=== PATIENT | female | born 1930 | race Two or more races ===

== ENCOUNTER 2017-08-01 01:32 | Inpatient (IN) | payer MEDICARE, OTHER ==
[2017-08-01] VITALS (49 sets, daily range): BP systolic 62–178; BP diastolic 25–132
[~2017-08-01] VITALS: Ht 157.5 cm; Wt 78.5 kg
[2017-08-01] MEDS ORDERED: ONDANSETRON HCL/PF 4 MG/2 ML VIAL ONE (01:46)
[2017-08-01 01:56] LABS: BASOPHILS # (AUTO) 0.3 /CMM (0.0-0.2); HEMATOCRIT 32 % (33-45); HEMOGLOBIN 10.9 g/dL (11.5-14.8); LYMPHOCYTES # (AUTO) 2.7 /CMM (0.8-4.8); LYMPHOCYTES % (AUTO) 9.5 % (20.0-44.0); MEAN CORPUSCULAR HEMOGLOBIN 32 PG (26.0-33.0); MEAN CORPUSCULAR HGB CONC 34 g/dl (31.0-36.0); MEAN CORPUSCULAR VOLUME 92 fL (82-100); MONOCYTES # (AUTO) 0.4 /CMM (0.1-1.30); MONOCYTES % (AUTO) 1.4 % (2.0-12.0); NEUTROPHILS # (AUTO) 25.3 /CMM (1.8-8.9); NEUTROPHILS % (AUTO) 88.1 % (43.0-81.0); PLATELET COUNT (AUTO) 289 /CMM (150-450); RDW COEFFICIENT OF VARIATION 13.2 (11.5-15.0); RED BLOOD CELL COUNT(AUTO) 3.44 MIL/uL (4.0-5.2); WHITE BLOOD COUNT (AUTO) 28.7 K/uL (4.3-11.0)
[2017-08-01] MEDS ORDERED: IV NS 0.9% 1,000 ML BAG IV ONE ×3 (02:00→05:30)
[2017-08-01] MEDS ORDERED: ONDANSETRON HCL/PF 4 MG/2 ML VIAL IVP ONE (02:00)
[2017-08-01 02:22] LABS: CARBON DIOXIDE 22 mmol/L (21-32); CHLORIDE 104 mmol/L (98-107); CREATININE 3.6 mg/dL (0.6-1.3); GLUCOSE 216 mg/dL (74-106); POTASSIUM 4.8 mmol/L (3.5-5.1); SODIUM SERUM 140 mmol/L (136-145); UREA NITROGEN, BLOOD 49 mg/dL (7-18)
[2017-08-01 02:26] LABS: INR 1.1 (0.87-1.13); PROTHROMBIN TIME 11.4 SECS (9.5-12.7)
[2017-08-01 02:28] LABS: ALANINE AMINOTRANSFERASE 11 U/L (12-78); ALBUMIN 2.7 g/dL (3.4-5.0); ALKALINE PHOSPHATASE 57 U/L (46-116); ASPARTATE AMINOTRANSFERASE 13 U/L (15-37); BILIRUBIN,DIRECT 0.2 mg/dL (0.0-0.2); BILIRUBIN,TOTAL 0.7 mg/dL (0.2-1.0); LIPASE 77 U/L (73-393); TOTAL PROTEIN, SERUM 6.8 g/dL (6.4-8.2)
[2017-08-01 02:30] LABS: TROPONIN I 0.218 ng/mL (0.00-0.056)
[2017-08-01 02:32] LABS: APPEARANCE,URINE SL CLOUDY (CLEAR); BILIRUBIN,URINE NEGATIVE (NEGATIVE); BLOOD, URINE NEGATIVE Ery/uL (NEGATIVE); KETONES,URINE NEGATIVE (NEGATIVE); LEUKOCYTE ESTERASE ,URINE NEGATIVE (NEGATIVE); NITRITE, URINE POSITIVE (NEGATIVE); PROTEIN,URINE TRACE mg/dl (NEGATIVE); UGLUCOSE NEGATIVE (NEGATIVE); UROBILINOGEN,URINE 0.2 EU/dL (0.2)
[2017-08-01 02:33] LABS: COLOR,URINE DARK YELLOW (YELLOW)
[2017-08-01 02:37] LABS: BACTERIA,URINE Many /HPF (None Seen); RBC,URINE 0-2 /HPF (0-2); SQUAMOUS EPITHELIAL CELL,UR Rare /HPF (None Seen)
[2017-08-01 02:40] LABS: LYMPHOCYTES % (MANUAL) 13 % (16-48); MONOCYTES % (MANUAL) 2 % (0-11.0); NEUTROPHILS % (MANUAL) 85 (42-76)
[2017-08-01] MEDS ORDERED: IV NS 0.9% 500 ML BAG IV ONE (03:30)
[2017-08-01] MEDS ORDERED: AZTREONAM 1 G VIAL ONE (03:48)
[2017-08-01] MEDS ORDERED: AZTREONAM 1 G in IV NS 0.9% 100 ML IV ONE (04:00)
[2017-08-01] MEDS ORDERED: LEVOFLOXACIN 750 MG /D5W 150ML PIGGYBACK IV ONE (04:00)
[2017-08-01] MEDS ORDERED: LEVOFLOXACIN 750 MG /D5W 150ML 150 ML IV ONE (04:14)
[2017-08-01] MEDS: IV NS 0.9% 1,000 ML IV ONE ×2 (05:30→08:43)
[2017-08-01] MEDS ORDERED: MORPHINE SULFATE INJ 2 MG/ML DISP.SYRIN IV PRN (06:30)
[2017-08-01] MEDS: IV NS 0.9% 1,000 ML BAG IV ONE ×2 (06:30→09:26)
[2017-08-01] MEDS ORDERED: ONDANSETRON HCL/PF 4 MG/2 ML VIAL IVP PRN (06:30)
[2017-08-01] MEDS ORDERED: ACETAMINOPHEN 650 MG/SUPP.RECT RC PRN (06:30)
[2017-08-01] MEDS ORDERED: LORAZEPAM INJ 2 MG/ML VIAL IVP PRN (06:30)
[2017-08-01] MEDS ORDERED: MIRT15TA PO (08:08)
[2017-08-01] MEDS ORDERED: CARB1TAB21 PO (08:08)
[2017-08-01] MEDS ORDERED: MAGN400O6 PO (08:08)
[2017-08-01] MEDS ORDERED: PSYL1PAC8 PO (08:08)
[2017-08-01] MEDS ORDERED: NA P133E RC (08:08)
[2017-08-01] MEDS ORDERED: ACET-868 PO (08:08)
[2017-08-01] MEDS ORDERED: RANO10003 PO (08:08)
[2017-08-01] MEDS ORDERED: LISI2.5T2 PO (08:08)
[2017-08-01] MEDS ORDERED: BISA10SU8 RC (08:08)
[2017-08-01] MEDS ORDERED: INSU100V7 SQ (08:08)
[2017-08-01] MEDS ORDERED: DOCU-141 PO (08:08)
[2017-08-01] MEDS ORDERED: GABA-534 PO (08:08)
[2017-08-01] MEDS ORDERED: METO25TA3 PO (08:08)
[2017-08-01] MEDS ORDERED: OSEL75CA PO (08:08)
[2017-08-01] MEDS ORDERED: METF500T4 PO (08:08)
[2017-08-01] MEDS ORDERED: MEMA5TAB PO (08:08)
[2017-08-01] MEDS ORDERED: SIMV20TA2 PO (08:08)
[2017-08-01] MEDS ORDERED: VANCOMYCIN 1 GM in IV D5W 250 ML IV ONE (09:00)
[2017-08-01] MEDS ORDERED: NOREPINEPHRINE 16 MG in IV D5W 500 ML IV PRN (09:00)
[2017-08-01] MEDS: ASPIRIN 81 MG TAB.CHEW PO SCH (09:33)
[2017-08-01] MEDS: PANTOPRAZOLE 40 MG VIAL IV SCH (09:33)
[2017-08-01] MEDS ORDERED: FEE PK DOSING 1 MIN EA MC ONE (09:42)
[2017-08-01] MEDS: IV NS 0.9% 1,000 ML IV PRN ×2 (10:27→18:59)
[2017-08-01 11:35] LABS: ABG BASE EXCESS -12.7 mmol/L; ABG OXYGEN SATURATION 96.8 % (92.0-98.5); ABG PCO2 37.1 mmHg (35.0-45.0); ABG PH 7.206 (7.350-7.450); ABG PO2 102.5 mmHg (75.0-100.0); AaDO2 53.4 mmHg; COHb 0.6 % (0.5-1.5); MetHb 0.2 % (0.0-1.5); SITE, ABG Right Radial; VENT MODE, BG 2 L NC
[2017-08-01] MEDS: PIPERACILLIN /TAZOBACTAM 2.25 G in IV D5W 50 ML IV SCH ×2 (11:51→21:55)
[2017-08-01] MEDS: HEPARIN SODIUM, PORCINE 5000 UNITS/1 ML VIAL SQ SCH ×2 (11:53→21:57)
[2017-08-01] MEDS ORDERED: SODIUM BICARBONATE SYR 50 MEQ/50 ML DISP.SYRIN IV ONE (12:00)
[2017-08-01] MEDS ORDERED: PIPERACILLIN /TAZOBACTAM 3.375 G in IV D5W 50 ML IV SCH (12:00)
[2017-08-01] MEDS ORDERED: BISACODYL SUPP (10 MG) 10 MG/SUPP.RECT SUPP.RECT RC PRN (12:00)
[2017-08-01 12:06] LABS: TROPONIN I 0.133 ng/mL (0.00-0.056)
[2017-08-01 12:10] LABS: THYROID STIMULATING HORMONE 0.384 uIU/mL (0.358-3.74)
[2017-08-01 12:20] LABS: CARBON DIOXIDE 19 mmol/L (21-32); CHLORIDE 108 mmol/L (98-107); GLUCOSE 223 mg/dL (74-106); POTASSIUM 4.7 mmol/L (3.5-5.1); SODIUM SERUM 139 mmol/L (136-145); UREA NITROGEN, BLOOD 49 mg/dL (7-18)
[2017-08-01 12:27] LABS: BASOPHILS % (AUTO) 0.1 % (0.0-2.0); HEMATOCRIT 34 % (33-45); HEMOGLOBIN 11.4 g/dL (11.5-14.8); LYMPHOCYTES # (AUTO) 1.5 /CMM (0.8-4.8); LYMPHOCYTES % (AUTO) 6.7 % (20.0-44.0); MEAN CORPUSCULAR HEMOGLOBIN 32 PG (26.0-33.0); MEAN CORPUSCULAR HGB CONC 33 g/dl (31.0-36.0); MEAN CORPUSCULAR VOLUME 96 fL (82-100); MONOCYTES # (AUTO) 0.2 /CMM (0.1-1.30); MONOCYTES % (AUTO) 0.9 % (2.0-12.0); NEUTROPHILS # (AUTO) 20.9 /CMM (1.8-8.9); NEUTROPHILS % (AUTO) 92.3 % (43.0-81.0); PLATELET COUNT (AUTO) 280 /CMM (150-450); RDW COEFFICIENT OF VARIATION 14.1 (11.5-15.0); RED BLOOD CELL COUNT(AUTO) 3.59 MIL/uL (4.0-5.2); WHITE BLOOD COUNT (AUTO) 22.6 K/uL (4.3-11.0)
[2017-08-01] MEDS: CARBIDOPA/LEVODOPA 25/100 MG 1 UDTAB PO SCH ×2 (13:09→16:35)
[2017-08-01] MEDS ORDERED: DEXTROSE 50%-WATER 50 ML DISP.SYRIN IV PRN (13:30)
[2017-08-01] MEDS: MEMANTINE HCL 5 MG TABLET PO SCH (16:35)
[2017-08-01] MEDS: GABAPENTIN 300 MG CAPSULE PO SCH (16:35)
[2017-08-01] MEDS: DOCUSATE SODIUM 100 MG CAPSULE PO SCH (16:35)
[2017-08-01] MEDS: INSULIN REGULAR, HUMAN 100 UNIT/ML 3 ML VIAL SQ PRN (17:31)
[2017-08-01] MEDS: BLOOD SUGAR DIAGNOSTIC 1 EACH STRIP IN SCH (17:31)
[2017-08-01] MEDS: ATORVASTATIN 10 MG TABLET PO SCH (21:57)
[2017-08-01] MEDS: MIRTAZAPINE 15 MG TABLET PO SCH (21:57)
[2017-08-01] MEDS: SIMVASTATIN 20 MG TABLET PO SCH (21:57)
[2017-08-02] VITALS (23 sets, daily range): BP systolic 92–133; BP diastolic 28–74
[2017-08-02] MEDS: INSULIN REGULAR, HUMAN 100 UNIT/ML 3 ML VIAL SQ PRN ×3 (00:37→11:48)
[2017-08-02] MEDS: BLOOD SUGAR DIAGNOSTIC 1 EACH STRIP IN SCH ×4 (00:38→17:10)
[2017-08-02 05:02] LABS: BASOPHILS % (AUTO) 0.2 % (0.0-2.0); EOSINOPHILS % (AUTO) 0.1 % (0.0-6.0); HEMATOCRIT 32 % (33-45); HEMOGLOBIN 10.6 g/dL (11.5-14.8); LYMPHOCYTES # (AUTO) 1.5 /CMM (0.8-4.8); LYMPHOCYTES % (AUTO) 9.9 % (20.0-44.0); MEAN CORPUSCULAR HEMOGLOBIN 31 PG (26.0-33.0); MEAN CORPUSCULAR HGB CONC 33 g/dl (31.0-36.0); MEAN CORPUSCULAR VOLUME 94 fL (82-100); MONOCYTES # (AUTO) 0.4 /CMM (0.1-1.30); MONOCYTES % (AUTO) 2.3 % (2.0-12.0); NEUTROPHILS # (AUTO) 13.3 /CMM (1.8-8.9); NEUTROPHILS % (AUTO) 87.5 % (43.0-81.0); PLATELET COUNT (AUTO) 265 /CMM (150-450); RED BLOOD CELL COUNT(AUTO) 3.38 MIL/uL (4.0-5.2); WHITE BLOOD COUNT (AUTO) 15.2 K/uL (4.3-11.0)
[2017-08-02 05:26] LABS: INR 0.96 (0.87-1.13)
[2017-08-02 05:33] LABS: ALANINE AMINOTRANSFERASE 8 U/L (12-78); ALBUMIN 2.4 g/dL (3.4-5.0); ALKALINE PHOSPHATASE 45 U/L (46-116); ASPARTATE AMINOTRANSFERASE 17 U/L (15-37); BILIRUBIN,TOTAL 0.5 mg/dL (0.2-1.0); CALCIUM, SERUM 6.9 mg/dL (8.5-10.1); CARBON DIOXIDE 22 mmol/L (21-32); CHLORIDE 109 mmol/L (98-107); GLUCOSE 129 mg/dL (74-106); MAGNESIUM 1.3 mg/dL (1.8-2.4); PHOSPHORUS 2.7 mg/dL (2.5-4.9); POTASSIUM 3.8 mmol/L (3.5-5.1); SODIUM SERUM 141 mmol/L (136-145); TOTAL PROTEIN, SERUM 6.5 g/dL (6.4-8.2); UREA NITROGEN, BLOOD 48 mg/dL (7-18)
[2017-08-02 05:36] LABS: CREATINE KINASE MB 3.9 ng/mL (0-3.6)
[2017-08-02] MEDS: PIPERACILLIN /TAZOBACTAM 2.25 G in IV D5W 50 ML IV SCH ×3 (05:45→21:25)
[2017-08-02] MEDS: HEPARIN SODIUM, PORCINE 5000 UNITS/1 ML VIAL SQ SCH ×3 (05:46→21:32)
[2017-08-02] MEDS: IV NS 0.9% 1,000 ML IV PRN ×2 (06:02→15:30)
[2017-08-02] MEDS: INSULIN DETEMIR 100 UNIT/ML CARTRIDGE SQ SCH (07:30)
[2017-08-02] MEDS: ASPIRIN 81 MG TAB.CHEW PO SCH (08:19)
[2017-08-02] MEDS: MEMANTINE HCL 5 MG TABLET PO SCH ×2 (08:19→16:05)
[2017-08-02] MEDS: DOCUSATE SODIUM 100 MG CAPSULE PO SCH ×2 (08:20→16:05)
[2017-08-02] MEDS: CARBIDOPA/LEVODOPA 25/100 MG 1 UDTAB PO SCH ×3 (08:20→16:05)
[2017-08-02] MEDS: GABAPENTIN 300 MG CAPSULE PO SCH ×2 (08:20→16:05)
[2017-08-02] MEDS: PANTOPRAZOLE 40 MG VIAL IV SCH (08:20)
[2017-08-02] MEDS ORDERED: Z GUARD REMEDY 4 OZ OINT TP PRN (08:30)
[2017-08-02 09:14] LABS: ABG BASE EXCESS -5.7 mmol/L; ABG OXYGEN SATURATION 94.7 % (92.0-98.5); ABG PCO2 37.3 mmHg (35.0-45.0); ABG PH 7.337 (7.350-7.450); ABG PO2 82.5 mmHg (75.0-100.0); AaDO2 87.6 mmHg; COHb 0.3 % (0.5-1.5); MetHb 1.4 % (0.0-1.5); O2Hb 93.1 % (94.0-97.0); SITE, ABG Right Radial; VENT MODE, BG N/C
[2017-08-02] MEDS: Magnesium 1GM/D5W 100ML PREMIX 100 ML IV SCH ×2 (10:03→10:59)
[2017-08-02] MEDS ORDERED: IV NS 0.9% 1,000 ML IV ONE (12:30)
[2017-08-02] MEDS: BOOST GLUCOSE CONTROL VANILLA 237 ML BOX PO SCH (17:00)
[2017-08-02] MEDS ORDERED: VANCOMYCIN 1 GM in IV D5W 250 ML IV SCH (21:00)
[2017-08-02] MEDS: ATORVASTATIN 10 MG TABLET PO SCH (21:25)
[2017-08-02] MEDS: MIRTAZAPINE 15 MG TABLET PO SCH (21:26)
[2017-08-02] MEDS: SIMVASTATIN 20 MG TABLET PO SCH (21:26)
[2017-08-03] VITALS: BP 101/46
[2017-08-03] MEDS: BLOOD SUGAR DIAGNOSTIC 1 EACH STRIP IN SCH ×4 (00:05→17:44)
[2017-08-03 04:00] VITALS: BP 119/52
[2017-08-03] MEDS: PIPERACILLIN /TAZOBACTAM 2.25 G in IV D5W 50 ML IV SCH ×3 (04:21→20:38)
[2017-08-03] MEDS: HEPARIN SODIUM, PORCINE 5000 UNITS/1 ML VIAL SQ SCH ×3 (04:31→21:15)
[2017-08-03] MEDS: IV NS 0.9% 1,000 ML IV PRN (04:32)
[2017-08-03 06:41] LABS: BASOPHILS % (AUTO) 0.2 % (0.0-2.0); EOSINOPHILS # (AUTO) 0.1 /CMM (0.0-0.7); HEMATOCRIT 26 % (33-45); HEMOGLOBIN 8.8 g/dL (11.5-14.8); LYMPHOCYTES # (AUTO) 1.9 /CMM (0.8-4.8); LYMPHOCYTES % (AUTO) 24.1 % (20.0-44.0); MEAN CORPUSCULAR HEMOGLOBIN 31 PG (26.0-33.0); MEAN CORPUSCULAR HGB CONC 34 g/dl (31.0-36.0); MEAN CORPUSCULAR VOLUME 93 fL (82-100); MONOCYTES # (AUTO) 0.3 /CMM (0.1-1.30); NEUTROPHILS # (AUTO) 5.6 /CMM (1.8-8.9); NEUTROPHILS % (AUTO) 70.7 % (43.0-81.0); PLATELET COUNT (AUTO) 197 /CMM (150-450); RDW COEFFICIENT OF VARIATION 13.6 (11.5-15.0); WHITE BLOOD COUNT (AUTO) 7.9 K/uL (4.3-11.0)
[2017-08-03 06:56] LABS: ALANINE AMINOTRANSFERASE 9 U/L (12-78); ALKALINE PHOSPHATASE 38 U/L (46-116); ASPARTATE AMINOTRANSFERASE 17 U/L (15-37); BILIRUBIN,TOTAL 0.5 mg/dL (0.2-1.0); CALCIUM, SERUM 6.9 mg/dL (8.5-10.1); CARBON DIOXIDE 23 mmol/L (21-32); CHLORIDE 112 mmol/L (98-107); GLUCOSE 179 mg/dL (74-106); MAGNESIUM 1.8 mg/dL (1.8-2.4); PHOSPHORUS 1.9 mg/dL (2.5-4.9); POTASSIUM 3.6 mmol/L (3.5-5.1); SODIUM SERUM 142 mmol/L (136-145); TOTAL PROTEIN, SERUM 5.6 g/dL (6.4-8.2); UREA NITROGEN, BLOOD 26 mg/dL (7-18)
[2017-08-03 07:01] LABS: TROPONIN I 0.225 ng/mL (0.00-0.056)
[2017-08-03] MEDS: INSULIN DETEMIR 100 UNIT/ML CARTRIDGE SQ SCH (07:30)
[2017-08-03 08:00] VITALS: BP 110/59
[2017-08-03] MEDS ORDERED: VANCOMYCIN 0.75 GM in IV D5W 250 ML IV SCH (09:00)
[2017-08-03] MEDS: GABAPENTIN 300 MG CAPSULE PO SCH ×2 (10:39→16:53)
[2017-08-03] MEDS: POTASSIUM CHLORIDE 20 MEQ TAB.PRT.SR PO SCH ×2 (10:40→11:43)
[2017-08-03] MEDS: MEMANTINE HCL 5 MG TABLET PO SCH ×2 (10:40→16:52)
[2017-08-03] MEDS: CARBIDOPA/LEVODOPA 25/100 MG 1 UDTAB PO SCH ×3 (10:40→16:52)
[2017-08-03] MEDS: ASPIRIN 81 MG TAB.CHEW PO SCH (10:40)
[2017-08-03] MEDS: FUROSEMIDE 40 MG/4 ML VIAL IV SCH ×2 (10:41→13:47)
[2017-08-03] MEDS: DOCUSATE SODIUM 100 MG CAPSULE PO SCH ×2 (10:48→16:52)
[2017-08-03] MEDS: BOOST GLUCOSE CONTROL VANILLA 237 ML BOX PO SCH ×3 (10:48→16:52)
[2017-08-03] MEDS ORDERED: K PHOS NEUTRAL 250 MG TABLET PO ONE (11:00)
[2017-08-03] MEDS ORDERED: MORPHINE SULFATE INJ 4 MG/ML DISP.SYRIN IV ONE (11:00)
[2017-08-03 16:00] VITALS: BP 109/59
[2017-08-03] MEDS: LACTOBACILLUS RHAMNOSUS GG 1 EACH CAP.SPRINK PO SCH (16:52)
[2017-08-03] MEDS: METFORMIN 500 MG TABLET PO SCH (16:53)
[2017-08-03] MEDS: INSULIN REGULAR, HUMAN 100 UNIT/ML 3 ML VIAL SQ PRN (17:49)
[2017-08-03 20:00] VITALS: BP 113/53
[2017-08-03] MEDS: VANCOMYCIN 1 GM in IV D5W 250 ML IV SCH (21:14)
[2017-08-03] MEDS: MIRTAZAPINE 15 MG TABLET PO SCH (21:15)
[2017-08-03] MEDS: SIMVASTATIN 20 MG TABLET PO SCH (21:15)
[2017-08-03] MEDS: ATORVASTATIN 10 MG TABLET PO SCH (21:15)
[2017-08-04] VITALS: BP 141/72
[2017-08-04] MEDS: BLOOD SUGAR DIAGNOSTIC 1 EACH STRIP IN SCH ×4 (00:03→17:23)
[2017-08-04] MEDS: INSULIN REGULAR, HUMAN 100 UNIT/ML 3 ML VIAL SQ PRN ×4 (00:05→17:30)
[2017-08-04 04:00] VITALS: BP 139/76
[2017-08-04] MEDS: PIPERACILLIN /TAZOBACTAM 2.25 G in IV D5W 50 ML IV SCH ×3 (05:12→20:01)
[2017-08-04] MEDS: HEPARIN SODIUM, PORCINE 5000 UNITS/1 ML VIAL SQ SCH ×3 (05:13→20:52)
[2017-08-04 07:00] LABS: BASOPHILS % (AUTO) 0.3 % (0.0-2.0); EOSINOPHILS # (AUTO) 0.1 /CMM (0.0-0.7); EOSINOPHILS % (AUTO) 1.7 % (0.0-6.0); HEMATOCRIT 27 % (33-45); HEMOGLOBIN 9.2 g/dL (11.5-14.8); LYMPHOCYTES # (AUTO) 2.1 /CMM (0.8-4.8); LYMPHOCYTES % (AUTO) 29.3 % (20.0-44.0); MEAN CORPUSCULAR HEMOGLOBIN 32 PG (26.0-33.0); MEAN CORPUSCULAR HGB CONC 34 g/dl (31.0-36.0); MEAN CORPUSCULAR VOLUME 93 fL (82-100); MONOCYTES # (AUTO) 0.3 /CMM (0.1-1.30); MONOCYTES % (AUTO) 4.7 % (2.0-12.0); NEUTROPHILS # (AUTO) 4.6 /CMM (1.8-8.9); PLATELET COUNT (AUTO) 199 /CMM (150-450); RDW COEFFICIENT OF VARIATION 13.8 (11.5-15.0); WHITE BLOOD COUNT (AUTO) 7.2 K/uL (4.3-11.0)
[2017-08-04 07:13] LABS: ALANINE AMINOTRANSFERASE 8 U/L (12-78); ALBUMIN 2.1 g/dL (3.4-5.0); ALKALINE PHOSPHATASE 49 U/L (46-116); ASPARTATE AMINOTRANSFERASE 15 U/L (15-37); BILIRUBIN,TOTAL 0.5 mg/dL (0.2-1.0); CALCIUM, SERUM 7.6 mg/dL (8.5-10.1); CARBON DIOXIDE 26 mmol/L (21-32); CHLORIDE 110 mmol/L (98-107); CREATININE 0.8 mg/dL (0.6-1.3); GLUCOSE 120 mg/dL (74-106); MAGNESIUM 1.6 mg/dL (1.8-2.4); PHOSPHORUS 2.1 mg/dL (2.5-4.9); POTASSIUM 3.9 mmol/L (3.5-5.1); SODIUM SERUM 144 mmol/L (136-145); UREA NITROGEN, BLOOD 19 mg/dL (7-18)
[2017-08-04 07:23] LABS: TROPONIN I 0.151 ng/mL (0.00-0.056)
[2017-08-04 08:00] VITALS: BP 123/52
[2017-08-04] MEDS: ASPIRIN 81 MG TAB.CHEW PO SCH (08:41)
[2017-08-04] MEDS: GABAPENTIN 300 MG CAPSULE PO SCH ×2 (08:41→17:23)
[2017-08-04] MEDS: CARBIDOPA/LEVODOPA 25/100 MG 1 UDTAB PO SCH ×3 (08:41→17:23)
[2017-08-04] MEDS: MEMANTINE HCL 5 MG TABLET PO SCH ×2 (08:41→17:23)
[2017-08-04] MEDS: DOCUSATE SODIUM 100 MG CAPSULE PO SCH ×2 (08:41→17:23)
[2017-08-04] MEDS: METFORMIN 500 MG TABLET PO SCH ×2 (08:41→17:23)
[2017-08-04] MEDS: LACTOBACILLUS RHAMNOSUS GG 1 EACH CAP.SPRINK PO SCH ×2 (08:41→17:23)
[2017-08-04 09:00] VITALS: BP 123/52
[2017-08-04] MEDS: INSULIN DETEMIR 100 UNIT/ML CARTRIDGE SQ SCH (09:19)
[2017-08-04] MEDS: BOOST GLUCOSE CONTROL VANILLA 237 ML BOX PO SCH ×3 (09:20→17:29)
[2017-08-04] MEDS ORDERED: Magnesium 1GM/D5W 100ML PREMIX 100 ML IV SCH ×2 (10:27→10:30)
[2017-08-04 11:06] LABS: ABG BASE EXCESS -0.5 mmol/L; ABG OXYGEN SATURATION 97.3 % (92.0-98.5); ABG PCO2 44.3 mmHg (35.0-45.0); ABG PH 7.368 (7.350-7.450); ABG PO2 101.4 mmHg (75.0-100.0); AaDO2 132.9 mmHg; COHb 0.6 % (0.5-1.5); MetHb 0.4 % (0.0-1.5); O2Hb 96.3 % (94.0-97.0); SITE, ABG Right Radial; VENT MODE, BG 5L NC
[2017-08-04] MEDS: NEUTRA PHOS 1 POWD.PACKET PO SCH ×2 (12:20→19:52)
[2017-08-04 15:56] VITALS: BP 124/58
[2017-08-04 20:33] VITALS: BP 140/69
[2017-08-04] MEDS: ACETAMINOPHEN 325 MG TABLET PO PRN (21:03)
[2017-08-04] MEDS: VANCOMYCIN 1 GM in IV D5W 250 ML IV SCH (21:07)
[2017-08-04] MEDS: MIRTAZAPINE 15 MG TABLET PO SCH (21:07)
[2017-08-04] MEDS: ATORVASTATIN 10 MG TABLET PO SCH (21:08)
[2017-08-04] MEDS: SIMVASTATIN 20 MG TABLET PO SCH (21:08)
[2017-08-04] MEDS ORDERED: MORPHINE SULFATE INJ 4 MG/ML DISP.SYRIN ONE (22:53)
[2017-08-04] MEDS ORDERED: MORPHINE SULFATE INJ 2 MG/ML DISP.SYRIN IV PRN (23:00)
[2017-08-04] MEDS ORDERED: MORPHINE SULFATE INJ 4 MG/ML DISP.SYRIN IV PRN (23:30)
[2017-08-05] VITALS: BP 114/54
[2017-08-05] MEDS: BLOOD SUGAR DIAGNOSTIC 1 EACH STRIP IN SCH ×4 (00:09→16:41)
[2017-08-05 04:00] VITALS: BP 142/72
[2017-08-05] MEDS: PIPERACILLIN /TAZOBACTAM 2.25 G in IV D5W 50 ML IV SCH ×2 (04:56→12:54)
[2017-08-05] MEDS: HEPARIN SODIUM, PORCINE 5000 UNITS/1 ML VIAL SQ SCH ×2 (04:59→12:53)
[2017-08-05 07:00] LABS: CALCIUM, SERUM 8.1 mg/dL (8.5-10.1); CARBON DIOXIDE 29 mmol/L (21-32); CHLORIDE 109 mmol/L (98-107); CREATININE 0.6 mg/dL (0.6-1.3); GLUCOSE 81 mg/dL (74-106); POTASSIUM 3.6 mmol/L (3.5-5.1); SODIUM SERUM 144 mmol/L (136-145); UREA NITROGEN, BLOOD 10 mg/dL (7-18)
[2017-08-05] MEDS: INSULIN DETEMIR 100 UNIT/ML CARTRIDGE SQ SCH (07:30)
[2017-08-05 08:00] VITALS: BP 110/58
[2017-08-05] MEDS: ASPIRIN 81 MG TAB.CHEW PO SCH (08:30)
[2017-08-05] MEDS: MEMANTINE HCL 5 MG TABLET PO SCH ×2 (08:30→16:41)
[2017-08-05] MEDS: LACTOBACILLUS RHAMNOSUS GG 1 EACH CAP.SPRINK PO SCH ×2 (08:30→16:41)
[2017-08-05] MEDS: METFORMIN 500 MG TABLET PO SCH ×2 (08:30→16:41)
[2017-08-05] MEDS: DOCUSATE SODIUM 100 MG CAPSULE PO SCH ×2 (08:30→16:41)
[2017-08-05] MEDS: GABAPENTIN 300 MG CAPSULE PO SCH ×2 (08:30→16:41)
[2017-08-05] MEDS: CARBIDOPA/LEVODOPA 25/100 MG 1 UDTAB PO SCH ×3 (08:30→16:41)
[2017-08-05] MEDS: ACETAMINOPHEN 325 MG TABLET PO PRN (08:30)
[2017-08-05] MEDS: BOOST GLUCOSE CONTROL VANILLA 237 ML BOX PO SCH ×3 (08:31→16:42)
[2017-08-05 09:00] VITALS: BP 110/58
[2017-08-05 16:00] VITALS: BP 115/60
== END 2017-08-05 19:00 | DRG 871 ==
LOC: ER 01:37 → TELE 04:19 → ICU 08:36 → TELE 08-02 18:03 → MED 08-04 11:15
PROVIDERS: ADMIT Internal Medicine; ATTEND Internal Medicine
PROC: 02HV33Z Insertion of Infusion Device into Superior Vena Cava, Percutaneous Approach (ICD-10-PCS; principal; 2017-08-01)
PROC: B548ZZA Ultrasonography of Superior Vena Cava, Guidance (ICD-10-PCS; 2017-08-01)
DX: A41.9 Sepsis, unspecified organism (principal); J96.01 Acute respiratory failure with hypoxia; I21.A1 Myocardial infarction type 2; J96.02 Acute respiratory failure with hypercapnia; N17.0 Acute kidney failure with tubular necrosis; J18.9 Pneumonia, unspecified organism; G93.41 Metabolic encephalopathy; R65.21 Severe sepsis with septic shock; E87.2 Acidosis; N13.30 Unspecified hydronephrosis; N39.0 Urinary tract infection, site not specified; D64.9 Anemia, unspecified; R33.9 Retention of urine, unspecified; I12.9 Hypertensive chronic kidney disease with stage 1 through stage 4 chronic kidney disease, or unspecified chronic kidney disease; E78.5 Hyperlipidemia, unspecified; E11.22 Type 2 diabetes mellitus with diabetic chronic kidney disease; D63.8 Anemia in other chronic diseases classified elsewhere; I25.10 Atherosclerotic heart disease of native coronary artery without angina pectoris; N18.9 Chronic kidney disease, unspecified; Z88.8 Allergy status to other drugs, medicaments and biological substances; F03.90 Unspecified dementia, unspecified severity, without behavioral disturbance, psychotic disturbance, mood disturbance, and anxiety; Z79.4 Long term (current) use of insulin; Z79.84 Long term (current) use of oral hypoglycemic drugs; Z79.899 Other long term (current) drug therapy; N13.9 Obstructive and reflux uropathy, unspecified; F09 Unspecified mental disorder due to known physiological condition
CPT/HCPCS: 36415; 36600; 71045-TC; 76642-TC; 80048-TC; 80053-TC; 80061-TC; 80076-TC; 80202-TC; 81000-TC; 82306; 82553-TC; 82962-TC; 83605-TC; 83690-TC; 83735-TC; 84100-TC; 84439-TC; 84443-TC; 84484-TC; 85025-TC; 85385-TC; 85610-TC; 85730-TC; 87040-TC; 87081-TC; 87086-TC; 93307-TC; A4606; C1751; C9113; J1644; J1815; J1940; J1956; J2270; J2405; J2543; J3370; J3475; J3490; J7030; J7040; J7060; Z7610

== ENCOUNTER 2017-09-01 20:37 | Inpatient (IN) | payer MEDICARE, OTHER ==
[~2017-09-01] VITALS: Ht 157.5 cm; Wt 63.5 kg
[~2017-09-01 20:37] MED LIST: ACET-868 PO; BISA10SU8 RC; CARB1TAB21 PO; DOCU-141 PO; GABA-534 PO; INSU100V7 SQ; LISI2.5T2 PO; MAGN400O6 PO; MEMA5TAB PO; METF500T4 PO; METO25TA3 PO; MIRT15TA PO; NA P133E RC; OSEL75CA PO; PSYL1PAC8 PO; RANO10003 PO; SIMV20TA2 PO
--- NOTE | 2017-09-01 20:54 | NUR ---
TO BED 2 [facility] C/O ABDOMINAL PAIN X1 DAY, CONSTIPATION X3 DAYS. PT AAOX3 NO ACUTE DISTRESS NOTED, RESP EVEN AND UNLABORED. PENDING ER MD MELENDREZ.
--- NOTE | 2017-09-01 20:55 | NUR ---
ER MD AT BEDSIDE TO EVAL PT WITH ORDERS RECEIVED.
[2017-09-01 21:52] LABS: BASOPHILS % (AUTO) 0.3 % (0.0-2.0); EOSINOPHILS # (AUTO) 0.2 /CMM (0.0-0.7); EOSINOPHILS % (AUTO) 1.8 % (0.0-6.0); HEMATOCRIT 33 % (33-45); HEMOGLOBIN 11.2 g/dL (11.5-14.8); LYMPHOCYTES # (AUTO) 3.4 /CMM (0.8-4.8); LYMPHOCYTES % (AUTO) 31.3 % (20.0-44.0); MEAN CORPUSCULAR HEMOGLOBIN 30 PG (26.0-33.0); MEAN CORPUSCULAR HGB CONC 34 g/dl (31.0-36.0); MEAN CORPUSCULAR VOLUME 89 fL (82-100); MONOCYTES # (AUTO) 0.6 /CMM (0.1-1.30); MONOCYTES % (AUTO) 5.4 % (2.0-12.0); NEUTROPHILS # (AUTO) 6.7 /CMM (1.8-8.9); NEUTROPHILS % (AUTO) 61.2 % (43.0-81.0); PLATELET COUNT (AUTO) 417 /CMM (150-450); RDW COEFFICIENT OF VARIATION 14.1 (11.5-15.0); RED BLOOD CELL COUNT(AUTO) 3.71 MIL/uL (4.0-5.2)
[2017-09-01 22:07] LABS: ALANINE AMINOTRANSFERASE 19 U/L (12-78); ALBUMIN 3.1 g/dL (3.4-5.0); ALKALINE PHOSPHATASE 78 U/L (46-116); ASPARTATE AMINOTRANSFERASE 20 U/L (15-37); BILIRUBIN,DIRECT 0.2 mg/dL (0.0-0.2); BILIRUBIN,TOTAL 0.6 mg/dL (0.2-1.0); CALCIUM, SERUM 9.2 mg/dL (8.5-10.1); CARBON DIOXIDE 30 mmol/L (21-32); CHLORIDE 104 mmol/L (98-107); CREATININE 1.4 mg/dL (0.6-1.3); GLUCOSE 105 mg/dL (74-106); LIPASE 325 U/L (73-393); SODIUM SERUM 143 mmol/L (136-145); TOTAL PROTEIN, SERUM 8.4 g/dL (6.4-8.2); UREA NITROGEN, BLOOD 32 mg/dL (7-18)
[2017-09-01 22:09] LABS: TROPONIN I < 0.017 ng/mL (0.00-0.056)
[2017-09-01 22:12] LABS: POTASSIUM 2.3 mmol/L (3.5-5.1)
[2017-09-01] MEDS ORDERED: IV PREMIX 0.45% NS + KCL 1,000 ML IV ONE ×2 (22:24→22:54)
[2017-09-01] MEDS ORDERED: POTASSIUM CHLORIDE 20 MEQ TAB.PRT.SR PO ONE ×2 (22:30→22:32)
[2017-09-01 22:41] LABS: APPEARANCE,URINE CLEAR (CLEAR); BILIRUBIN,URINE NEGATIVE (NEGATIVE); BLOOD, URINE TRACE-INTA Ery/uL (NEGATIVE); COLOR,URINE YELLOW (YELLOW); KETONES,URINE TRACE (NEGATIVE); LEUKOCYTE ESTERASE ,URINE TRACE (NEGATIVE); NITRITE, URINE NEGATIVE (NEGATIVE); PROTEIN,URINE 1+ mg/dl (NEGATIVE); UGLUCOSE NEGATIVE (NEGATIVE); UROBILINOGEN,URINE 0.2 EU/dL (0.2)
[2017-09-01 22:58] LABS: BACTERIA,URINE None seen /HPF (None Seen); SQUAMOUS EPITHELIAL CELL,UR Rare /HPF (None Seen); WBC,URINE 0-2 /HPF (0-3)
--- NOTE | 2017-09-01 23:27 | NUR ---
REPORT CALLED TO TELE 1 MARCELLO SAWYER WILL TRANSPORT PT VIA ACLS PROTOCOL.
[2017-09-02] VITALS: BP 149/88
[2017-09-02] MEDS ORDERED: ACETAMINOPHEN 325 MG TABLET PO PRN
[2017-09-02] MEDS ORDERED: DEXTROSE 50%-WATER 50 ML DISP.SYRIN IV PRN
[2017-09-02] MEDS ORDERED: NA PHOS,M-B/NA PHOS,DI-BA 1 EA ENEMA RC PRN
[2017-09-02] MEDS ORDERED: Z GUARD REMEDY 2 OZ OINT TP PRN
[2017-09-02] MEDS ORDERED: ONDANSETRON HCL/PF 4 MG/2 ML VIAL IVP PRN
[2017-09-02] MEDS ORDERED: BISACODYL SUPP (10 MG) 10 MG/SUPP.RECT SUPP.RECT RC PRN
--- NOTE | 2017-09-02 02:00 | NUR ---
RN OPENING NOTE RECEIVED PATIENT FROM ER VIA GURVIKTORIA, AWAKE/ALERT, ORIENTED X [address], NO RESPIRATORY DISTRESS NOTED, ROOM AIR SO2 98%, DENIES PAIN AND DISCOMFORT, ADMITTING DX URINARY RETENTION, CONSTIPATION, RIGHT FOREARM 18 GAUGE, NO S/S OF INFILTRATION/INFECTION NOTED, ONGOING IV 1/2 NS AT 20 MeQ KCL FROM ER, LEFT AC 18 GAUGE, SINUS RYTHM ON THE MONITOR 77 BEATS/MIN, SKIN PICTURES WERE TAKEN AND PLACED IN THE CHART, DR ELIA RACHEL IS BY BEDSIDE, INVENTORY DONE, ALL SAFETY MEASURES TAKEN, CALL LIGHT WITHIN REACH, ALL BELONGINGS WITHIN REACH, BED IN THE LOWEST POSITION, SIDE RAILS UP X 2, WILL CONTINUE TO MONITOR PATIENT
[2017-09-02 04:00] VITALS: BP 117/75
--- NOTE | 2017-09-02 06:50 | NUR ---
RN NOTE WAS NOT ABLE TO SCAN 1/2% NS POTASSIUM 20 MEQ RIGHT FOREARM, WAS ADMINISTERED, CHARGE NURSE IS AWARE
[2017-09-02 07:00] LABS: EOSINOPHILS # (AUTO) 0.2 /CMM (0.0-0.7); EOSINOPHILS % (AUTO) 1.6 % (0.0-6.0); HEMATOCRIT 31 % (33-45); HEMOGLOBIN 10.6 g/dL (11.5-14.8); LYMPHOCYTES # (AUTO) 3.1 /CMM (0.8-4.8); LYMPHOCYTES % (AUTO) 28.2 % (20.0-44.0); MEAN CORPUSCULAR HEMOGLOBIN 31 PG (26.0-33.0); MEAN CORPUSCULAR HGB CONC 34 g/dl (31.0-36.0); MEAN CORPUSCULAR VOLUME 90 fL (82-100); MONOCYTES # (AUTO) 0.5 /CMM (0.1-1.30); MONOCYTES % (AUTO) 4.8 % (2.0-12.0); NEUTROPHILS # (AUTO) 7.2 /CMM (1.8-8.9); NEUTROPHILS % (AUTO) 65.4 % (43.0-81.0); PLATELET COUNT (AUTO) 348 /CMM (150-450); RDW COEFFICIENT OF VARIATION 14.2 (11.5-15.0); RED BLOOD CELL COUNT(AUTO) 3.46 MIL/uL (4.0-5.2)
[2017-09-02 07:14] LABS: ALANINE AMINOTRANSFERASE 17 U/L (12-78); ALBUMIN 2.9 g/dL (3.4-5.0); ASPARTATE AMINOTRANSFERASE 21 U/L (15-37); B-TYPE NATRIURETIC PEPTIDE 887 PG/ML (0-125); BILIRUBIN,TOTAL 0.7 mg/dL (0.2-1.0); CARBON DIOXIDE 27 mmol/L (21-32); CHLORIDE 110 mmol/L (98-107); CREATININE 1.1 mg/dL (0.6-1.3); GLUCOSE 95 mg/dL (74-106); MAGNESIUM 1.3 mg/dL (1.8-2.4); PHOSPHORUS 2.9 mg/dL (2.5-4.9); POTASSIUM 3.1 mmol/L (3.5-5.1); SODIUM SERUM 147 mmol/L (136-145); TOTAL PROTEIN, SERUM 7.7 g/dL (6.4-8.2); UREA NITROGEN, BLOOD 28 mg/dL (7-18)
--- NOTE | 2017-09-02 07:24 | NUR ---
RN NOTE PATIENT WAS RESTING WELL AT NIGHT, ONGOING IV NS 0.45 20 MEQ KCL, NO DISTRESS NOTED, NO PAIN OR DISCOMFORT NOTED, ON ROOM AIR, NO CHANGES DURING MY SHIFT, ALL SAFETY MEASURES TAKEN, CALL LIGHT WITHIN, BED IN THE LOWEST POSITION, SIDE RAILS X 2
[2017-09-02 07:30] LABS: ALKALINE PHOSPHATASE 72 U/L (46-116); CALCIUM, SERUM 8.6 mg/dL (8.5-10.1)
[2017-09-02 08:00] VITALS: BP 159/71
--- NOTE | 2017-09-02 08:00 | NUR ---
RN NOTES PATIENT IN BED RESTING, ARABIC SPEAKING ALERT, ORIENTED X2 NO SOB OR ACUTE DISTRESS NOTED. BED IN LOW LOCKED POSITION CALL LIGHT WITHIN REACH. PERIPHERAL IV INTACT PATENT ON RIGHT FOREARM. WILL CONTINUE TO MONITOR.
[2017-09-02] MEDS: BLOOD SUGAR DIAGNOSTIC 1 EACH STRIP IN SCH ×4 (08:25→22:21)
[2017-09-02] MEDS: LISINOPRIL (5MG) 5 MG TABLET PO SCH (08:25)
[2017-09-02] MEDS: GABAPENTIN 300 MG CAPSULE PO SCH ×2 (08:25→17:23)
[2017-09-02] MEDS: CARBIDOPA/LEVODOPA 25/100 MG 1 UDTAB PO SCH ×3 (08:25→17:22)
[2017-09-02] MEDS: METOPROLOL SUCCINATE 25 MG TAB.SR.24H PO SCH (08:26)
[2017-09-02] MEDS: PANTOPRAZOLE 40 MG TABLET.DR PO SCH (08:26)
[2017-09-02] MEDS: MEMANTINE HCL 5 MG TABLET PO SCH ×2 (08:26→17:22)
[2017-09-02] MEDS: DOCUSATE SODIUM 100 MG CAPSULE PO SCH ×2 (08:26→17:23)
[2017-09-02] MEDS: INSULIN GLARGINE, 100 UNIT/ML CARTRIDGE SQ SCH (08:26)
[2017-09-02] MEDS ORDERED: Ranolazine (Ranexa) PO SCH (09:00)
[2017-09-02] MEDS ORDERED: POTASSIUM CHLORIDE 20 MEQ TAB.PRT.SR PO ONE (09:30)
[2017-09-02] MEDS: Magnesium 1GM/D5W 100ML PREMIX 100 ML IV SCH ×4 (09:58→13:52)
--- NOTE | 2017-09-02 10:00 | NUR ---
RN NOTES PATIENT SEEN AND EVALUATED BY MD ORDERS NOTED AND CARRIED OUT.
[2017-09-02 10:07] LABS: CHOLESTEROL 127 mg/dL (<200); HDL CHOLESTEROL 49 mg/dL (40-60); LDL 65 mg/dL (0-99); THYROID STIMULATING HORMONE 1.646 uIU/mL (0.358-3.74); TRIGLYCERIDES 77 mg/dL (30-150)
--- NOTE | 2017-09-02 10:28 | NUR ---
WOUND CARE CONSULT: PT PRESENTS WITH INCONTINENCE AND RASH WITH PEELING SKIN TO BUTTOCKS, PERINEUM AND GROIN AREAS, PRESENT ON ADMISSION. PT ON MARK ISOFLEX LOW AIRLOSS BED. ALL SKIN PROTECTION MEASURES IN PLACE AND DISCUSSED WITH NURSING STAFF. LEFT HEEL CALLUS NOTED WELL SCARRING TO RT LOWER LEG, PRESENT ON ADMISSION. WILL SEE PRN. CURRENT ROBLES SCORE IS 15. MD IN AGREEMENT WITH PLAN OF CARE. Addendum: 09/02/17 at 1029 by EMIGDIO NICHOLE WNDNU Amended: Links added.
[2017-09-02] MEDS: INSULIN REGULAR, HUMAN 100 UNIT/ML 3 ML VIAL SQ PRN ×2 (11:58→22:30)
[2017-09-02 12:00] VITALS: BP 158/70
[2017-09-02] MEDS: CLOTRIMAZOLE 1% 15 GM TUBE TP SCH ×2 (12:41→17:23)
--- NOTE | 2017-09-02 13:00 | NUR ---
RN NOTES PATIENT NOTED RETAINING URIN , BLADDER SCAN DONE NOTED WITH MORE THEN 600ML URIN DR. VIRGEN MADE AWARE ORDERS TO INSERT ALEJO, AND CONTACT PSYCH FOR CONSULT ORDERS NOTED AND CARRIED OUT.
[2017-09-02 16:00] VITALS: BP 129/52
[2017-09-02] MEDS: PSYLLIUM SEED 1 PKT PACKET PO SCH (17:22)
--- NOTE | 2017-09-02 18:55 | NUR ---
RN NOTES PATIENT IN BED RESTING NO SOB OR ACUTE DISTRESS NOTED. ALL DUE MEDICATIONS ADMINISTERED. ALL NEEDS MET. PERIPHERAL IV ON RIGHT FOREARM INTACT PATENT. WILL ENDORSE CARE TO PM SHIFT.
--- NOTE | 2017-09-02 19:30 | NUR ---
E COMMERCE STRATEGIST INITIAL NOTE PT RECEIVED AWAKE IN BED. A/O X2 SURINAMESE SPEAKING AND ABLE TO MAKE SOME NEEDS KNOWN. ROOM AIR AND SATURATING 100%. BREATHING REGULAR AND UNLABORED. TELE- SINUS RHYTHM 70. IV R FOREARM CLEAN, DRY, PATENT AND FLUSHING WELL. CALL LIGHT WITHIN REACH. WILL CONTINUE TO MONITOR.
[2017-09-02 20:00] VITALS: BP 117/54
[2017-09-02] MEDS ORDERED: MIRTAZAPINE 15 MG TABLET PO SCH (22:00)
[2017-09-02] MEDS: SIMVASTATIN 20 MG TABLET PO SCH (22:21)
[2017-09-02] MEDS: QUETIAPINE FUMARATE 25 MG TABLET PO SCH (22:21)
[2017-09-03] VITALS (7 sets, daily range): BP systolic 109–121; BP diastolic 49–56
[2017-09-03 06:51] LABS: CALCIUM, SERUM 8.3 mg/dL (8.5-10.1); CARBON DIOXIDE 26 mmol/L (21-32); CHLORIDE 105 mmol/L (98-107); CREATININE 1.4 mg/dL (0.6-1.3); GLUCOSE 93 mg/dL (74-106); POTASSIUM 3.6 mmol/L (3.5-5.1); SODIUM SERUM 141 mmol/L (136-145); UREA NITROGEN, BLOOD 25 mg/dL (7-18)
[2017-09-03 06:58] LABS: BASOPHILS % (AUTO) 0.2 % (0.0-2.0); EOSINOPHILS # (AUTO) 0.2 /CMM (0.0-0.7); EOSINOPHILS % (AUTO) 1.8 % (0.0-6.0); HEMATOCRIT 29 % (33-45); LYMPHOCYTES % (AUTO) 30.9 % (20.0-44.0); MEAN CORPUSCULAR HEMOGLOBIN 30 PG (26.0-33.0); MEAN CORPUSCULAR HGB CONC 34 g/dl (31.0-36.0); MEAN CORPUSCULAR VOLUME 89 fL (82-100); MONOCYTES # (AUTO) 0.5 /CMM (0.1-1.30); MONOCYTES % (AUTO) 5.2 % (2.0-12.0); NEUTROPHILS # (AUTO) 5.9 /CMM (1.8-8.9); NEUTROPHILS % (AUTO) 61.9 % (43.0-81.0); PLATELET COUNT (AUTO) 340 /CMM (150-450); RDW COEFFICIENT OF VARIATION 14.6 (11.5-15.0); RED BLOOD CELL COUNT(AUTO) 3.28 MIL/uL (4.0-5.2); WHITE BLOOD COUNT (AUTO) 9.6 K/uL (4.3-11.0)
[2017-09-03 07:02] LABS: MAGNESIUM 2.5 mg/dL (1.8-2.4); PHOSPHORUS 3.3 mg/dL (2.5-4.9)
--- NOTE | 2017-09-03 07:33 | NUR ---
TOXICOLOGY TEACHER CLOSING NOTE NO ACUTE DISTRESS NOTED. ALL NEEDS ATTENDED TO PROMPTLY. KEPT CLEAN AND DRY. ALEJO CATHETER IN PLACE. CALL LIGHT WITHIN REACH. WILL ENDORSE TO NEXT SHIFT FOR CONTINUITY OF CARE.
[2017-09-03] MEDS: BLOOD SUGAR DIAGNOSTIC 1 EACH STRIP IN SCH ×4 (07:47→21:14)
[2017-09-03] MEDS: PANTOPRAZOLE 40 MG TABLET.DR PO SCH (07:47)
[2017-09-03] MEDS: INSULIN GLARGINE, 100 UNIT/ML CARTRIDGE SQ SCH ×2 (07:56→21:18)
[2017-09-03] MEDS: PSYLLIUM SEED 1 PKT PACKET PO SCH ×2 (09:45→17:45)
[2017-09-03] MEDS: ESCITALOPRAM OXALATE (10 MG) 10 MG TABLET PO SCH (09:46)
[2017-09-03] MEDS: LISINOPRIL (5MG) 5 MG TABLET PO SCH (09:46)
[2017-09-03] MEDS: METOPROLOL SUCCINATE 25 MG TAB.SR.24H PO SCH (09:46)
[2017-09-03] MEDS: DOCUSATE SODIUM 100 MG CAPSULE PO SCH ×2 (09:47→17:45)
[2017-09-03] MEDS: CARBIDOPA/LEVODOPA 25/100 MG 1 UDTAB PO SCH ×3 (09:47→17:45)
[2017-09-03] MEDS: GABAPENTIN 300 MG CAPSULE PO SCH ×2 (09:47→17:45)
[2017-09-03] MEDS: MEMANTINE HCL 5 MG TABLET PO SCH ×2 (09:47→17:45)
[2017-09-03] MEDS: CLOTRIMAZOLE 1% 15 GM TUBE TP SCH ×2 (09:48→17:45)
[2017-09-03] MEDS: INSULIN REGULAR, HUMAN 100 UNIT/ML 3 ML VIAL SQ PRN (11:10)
[2017-09-03] MEDS: INSULIN LISPRO/ASPART 100 UNIT/ML CARTRIDGE SQ SCH (17:51)
--- NOTE | 2017-09-03 19:35 | NUR ---
RN NOTES RECEIVED PT AWAKE, HOB ELEVATED, ON ROOM AIR AND TOLERATED WELL. PT IS ALERT AND ORIENTED X1-2, MONTENEGR[place] SPEAKING. PT DENIES SOB, PAIN, NAUSEA AND VOMITING. IV ACCESS ON RIGHT FOREARM PATENT AND INTACT. ALEJO CATHETER INTACT WITH CLEAR URINE OUTPUT DRAINING TO GRAVITY. SAFETY MEASURES AND FALL PRECAUTION OBSERVED. KEPT COMFORTABLE AND ATTENDED, CALL LIGHT WITHIN REACH. WILL CONTINUE TO MONITOR PT.
--- NOTE | 2017-09-03 19:38 | NUR ---
Notified night nurse per request of provider , Bossman Allen N.P., to hold long acting lantus/levimir because it was administered am dose and now dose is due tomorrow night 09/04. Night nurse verbalizes understanding and requests this documentation.
[2017-09-03] MEDS: SIMVASTATIN 20 MG TABLET PO SCH (21:15)
[2017-09-03] MEDS: QUETIAPINE FUMARATE 25 MG TABLET PO SCH (21:15)
--- NOTE | 2017-09-03 21:18 | NUR ---
RN NOTES PER REPORT BY MORNING RN, HOLD LANTUS 30 UNITS TONIGHT BECAUSE IT WAS GIVEN IN THE MORNING ORDERED BY MARIBETH WEIR.
[2017-09-04 01:22] VITALS: BP 104/54
[2017-09-04 04:00] VITALS: BP 103/59
[2017-09-04 06:53] VITALS: BP 103/49
--- NOTE | 2017-09-04 07:30 | NUR ---
RN NOTES PT SLEPT WELL OVERNIGHT, VITAL SIGNS STABLE. DENIES ANY PAIN AND DISCOMFORT. ALEJO INTACT DRAINING TO GARVITY. NO SIGNIFICANY CHANGE IN CONDITION NOTED. ENDORSED TO MORNING RN FOR CONTINUITY OF CARE.
--- NOTE | 2017-09-04 07:31 | NUR ---
MS RN OPENING NOTES RECEIVED PT AWAKE IN BED IN NO ACUTE SIGNS OF DISTRESS. A/O X2-3, VERBALLY RESPONSIVE IN SWEDISH, NO C/O PAIN OR DISCOMFORTS AT THIS TIME. ON ROOM AIR, BREATHING EVEN & UNLABORED. IV ACCESS ON RIGHT FA G#18 INTACT AND PATENT W/ DRESSING CDI. ALEJO CATH IN PLACE WITH CLEAR YELLOW URINE NOTED AT BEDSIDE URINARY BAG. SAFETY MEASURES IN PLACE W/ SIDE RAILS UP, BED LOCKED & IN LOWEST POSITION. CALL LIGHT WITHIN EASY REACH. WILL CONTINUE TO MONITOR.
[2017-09-04] MEDS: BLOOD SUGAR DIAGNOSTIC 1 EACH STRIP IN SCH ×4 (07:38→22:13)
[2017-09-04] MEDS: PANTOPRAZOLE 40 MG TABLET.DR PO SCH (07:38)
[2017-09-04 07:52] LABS: BASOPHILS % (AUTO) 0.3 % (0.0-2.0); EOSINOPHILS # (AUTO) 0.2 /CMM (0.0-0.7); EOSINOPHILS % (AUTO) 1.7 % (0.0-6.0); HEMATOCRIT 28 % (33-45); HEMOGLOBIN 9.5 g/dL (11.5-14.8); LYMPHOCYTES # (AUTO) 3.4 /CMM (0.8-4.8); MEAN CORPUSCULAR HEMOGLOBIN 31 PG (26.0-33.0); MEAN CORPUSCULAR HGB CONC 34 g/dl (31.0-36.0); MEAN CORPUSCULAR VOLUME 90 fL (82-100); MONOCYTES # (AUTO) 0.6 /CMM (0.1-1.30); MONOCYTES % (AUTO) 5.7 % (2.0-12.0); NEUTROPHILS # (AUTO) 6.1 /CMM (1.8-8.9); NEUTROPHILS % (AUTO) 59.3 % (43.0-81.0); PLATELET COUNT (AUTO) 315 /CMM (150-450); RED BLOOD CELL COUNT(AUTO) 3.09 MIL/uL (4.0-5.2); WHITE BLOOD COUNT (AUTO) 10.3 K/uL (4.3-11.0)
[2017-09-04 08:00] VITALS: BP 115/48
[2017-09-04 08:05] LABS: CALCIUM, SERUM 8.4 mg/dL (8.5-10.1); CARBON DIOXIDE 27 mmol/L (21-32); CHLORIDE 105 mmol/L (98-107); CREATININE 1.3 mg/dL (0.6-1.3); GLUCOSE 71 mg/dL (74-106); POTASSIUM 3.3 mmol/L (3.5-5.1); SODIUM SERUM 141 mmol/L (136-145); UREA NITROGEN, BLOOD 25 mg/dL (7-18)
[2017-09-04] MEDS: GABAPENTIN 300 MG CAPSULE PO SCH ×2 (08:34→16:42)
[2017-09-04] MEDS: MEMANTINE HCL 5 MG TABLET PO SCH ×2 (08:35→16:42)
[2017-09-04] MEDS: PSYLLIUM SEED 1 PKT PACKET PO SCH ×2 (08:35→16:42)
[2017-09-04] MEDS: DOCUSATE SODIUM 100 MG CAPSULE PO SCH ×2 (08:36→16:42)
[2017-09-04] MEDS: ESCITALOPRAM OXALATE (10 MG) 10 MG TABLET PO SCH (08:36)
[2017-09-04] MEDS: CARBIDOPA/LEVODOPA 25/100 MG 1 UDTAB PO SCH ×3 (08:36→16:43)
[2017-09-04] MEDS: LISINOPRIL (5MG) 5 MG TABLET PO SCH (08:37)
[2017-09-04] MEDS: METOPROLOL SUCCINATE 25 MG TAB.SR.24H PO SCH (08:38)
[2017-09-04] MEDS: CLOTRIMAZOLE 1% 15 GM TUBE TP SCH ×2 (08:39→16:43)
[2017-09-04] MEDS ORDERED: POTASSIUM CL. PREMIX PERIPHER. 50 ML IV SCH (09:00)
[2017-09-04] MEDS: INSULIN LISPRO/ASPART 100 UNIT/ML CARTRIDGE SQ SCH ×2 (09:16→18:35)
[2017-09-04] MEDS: INSULIN REGULAR, HUMAN 100 UNIT/ML 3 ML VIAL SQ PRN (12:14)
[2017-09-04] MEDS: ASPIRIN EC 81 MG TABLET.DR PO SCH (15:38)
--- NOTE | 2017-09-04 15:46 | NUR ---
RN NOTES PATIENT C/O MILD CHESTPAIN, V/S CHECKED: BP131/62, P 68, R 18, SP[address] BRAMBILA ON UNIT AND MADE AWARE. DR BRAMBILA ASSESSED PT WITH ORDER TO GIVE ASPIRIN 81 MG, TO CHECK TROPONIN LEVEL, DO EKG AND ECHOCARDIOGRAM. PT AT THIS TIME GESTURED THAT SHE'S OK NOW. АЛЕКСАНДР LOPEZ SAME MADE AWARE. WILL CONTINUE TO MONITOR.
[2017-09-04 16:00] VITALS: BP 110/53
--- NOTE | 2017-09-04 18:57 | NUR ---
MS RN CLOSING NOTES PT AWAKE AND RESTING AT MODERTAE HIGH BACKREST IN BED. A/O X2-3, VERBALLY RESPONSIVE IN SAO TOME[place], NO C/O CHEST PAIN OR DISCOMFORTS AT THIS TIME. ON ROOM AIR, BREATHING EVEN & UNLABORED. IV ACCESS ON RIGHT FA G#18 INTACT AND PATENT W/ DRESSING CDI. ALEJO CATH IN PLACE WITH CLEAR YELLOW URINE NOTED AT BEDSIDE URINARY BAG. SAFETY MEASURES IN PLACE W/ SIDE RAILS UP, BED LOCKED & IN LOWEST POSITION. CALL LIGHT WITHIN EASY REACH. ALL NEEDS AND CARE PROVIDED WELL. WILL ENDORSED TO SPECIAL EDUCATION CURRICULUM SPECIALIST NURSE FOR SHANICE..
--- NOTE | 2017-09-04 19:30 | NUR ---
MS RN OPENING NOTES: PATIENT IN BED, ASLEEP BUT EASILY AWAKENED TO BEING CALLED BY NAME, AOX3, PERSIAN SPEAKING. APPEARS CALM AND IN NO DISTRESS. DENIES PAIN/ CHEST PAIN. PIV OVER RFA G 18 INTACT AND PATENT TO FLUSH. ALEJO CATHETER IN PLACE DRAINING CLEAR YELLOW URINE. PROVIDED FOR COMFORT AND SAFETY. BED IN LOWEST AND LOCKED POSITION, SIDERAILS UP X 3, CALL LIGHT WITHIN REACH. WILL CONT TO MONITOR.
[2017-09-04 20:00] VITALS: BP_SYST 107; BP_SYST 115; BP_DIAS 50; BP_DIAS 72
[2017-09-04] MEDS: SIMVASTATIN 20 MG TABLET PO SCH (22:14)
[2017-09-04] MEDS: QUETIAPINE FUMARATE 25 MG TABLET PO SCH (22:15)
--- NOTE | 2017-09-04 22:20 | NUR ---
RN NOTES: US TECH AT BEDSIDE, ECHOCARDIOGRAM DONE.
[2017-09-04] MEDS: INSULIN GLARGINE, 100 UNIT/ML CARTRIDGE SQ SCH (22:37)
[2017-09-05 04:30] VITALS: BP 131/65
--- NOTE | 2017-09-05 04:30 | NUR ---
MS RN NOTES TRANSFER FROM MS1 BY BED,SLEEPING,AROUSABLE TO VERBAL STIMULI.NO SOB.WITH ALEJO CATH IN PLACE DRAINING YELLOW CLOUDY URINE OUTPUT,SEDIMENT NOTED.SALINE LOCK RFA INTACT AND PATENT. FOR PT EVAL TODAY TO EVALUATE WEAKNESS ON BOTH LOWER EXTREMITIES.WILL CONTINUE TO MONITOR STATUS.
--- NOTE | 2017-09-05 04:35 | NUR ---
RN NOTES: REPORT FOR SHANICE GIVEN TO MARCELLO WOLFF. PATIENT TRANSFERRED TO MS 2 ROOM 207 IN STABLE CONDITION, VIA GURNEY, ACCOMPANIED BY MARCELLO FUNEZ AND HOMAR NOVOA. BELONGINGS CHECKED.
[2017-09-05 04:52] VITALS: BP 142/61
[2017-09-05 05:00] VITALS: BP 142/61
[2017-09-05] MEDS: BLOOD SUGAR DIAGNOSTIC 1 EACH STRIP IN SCH ×3 (05:36→17:53)
--- NOTE | 2017-09-05 07:22 | NUR ---
MS RN NOTES BLOOD SUGAR CHECK 108,NO INSULIN COVERAGE.APPEARS WEAK.FOR XRAY ON BOTH LEGS TODAY.PT EVAL FOLLOW UP FOR WEAKNESS.IN NO ACUTE DISTRESS.WILL ENDORSE TO DAY NURSE FOR SHANICE.
--- NOTE | 2017-09-05 07:54 | NUR ---
MS RN OPENING NOTES RECEIVED PT IN BED AWAKE, A/O X3. SPEAKS [place] CITIZEN ONLY, NO C/O PAIN OR DISCOMFORTS AT THIS TIME. ON ROOM AIR, BREATHING EVEN & UNLABORED. IV ACCESS ON RIGHT FA G#18 INTACT AND PATENT W/ DRESSING CDI. ALEJO CATH IN PLACE WITH CLEAR YELLOW URINE NOTED AT BEDSIDE URINARY BAG. SAFETY MEASURES IN PLACE W/ SIDE RAILS UP, BED LOCKED & IN LOWEST POSITION. CALL LIGHT WITHIN EASY REACH. WILL CONTINUE TO MONITOR.
[2017-09-05 08:14] VITALS: BP 137/67
[2017-09-05] MEDS: ESCITALOPRAM OXALATE (10 MG) 10 MG TABLET PO SCH (08:36)
[2017-09-05] MEDS: PANTOPRAZOLE 40 MG TABLET.DR PO SCH (08:36)
[2017-09-05] MEDS: ASPIRIN EC 81 MG TABLET.DR PO SCH (08:36)
[2017-09-05] MEDS: METOPROLOL SUCCINATE 25 MG TAB.SR.24H PO SCH (08:37)
[2017-09-05] MEDS: DOCUSATE SODIUM 100 MG CAPSULE PO SCH ×2 (08:37→17:52)
[2017-09-05] MEDS: PSYLLIUM SEED 1 PKT PACKET PO SCH ×2 (08:37→17:52)
[2017-09-05] MEDS: GABAPENTIN 300 MG CAPSULE PO SCH ×2 (08:37→17:52)
[2017-09-05] MEDS: LISINOPRIL (5MG) 5 MG TABLET PO SCH (08:37)
[2017-09-05] MEDS: CARBIDOPA/LEVODOPA 25/100 MG 1 UDTAB PO SCH ×3 (08:37→17:52)
[2017-09-05] MEDS: MEMANTINE HCL 5 MG TABLET PO SCH ×2 (08:38→17:52)
[2017-09-05] MEDS: INSULIN LISPRO/ASPART 100 UNIT/ML CARTRIDGE SQ SCH ×2 (09:00→18:30)
[2017-09-05] MEDS: CLOTRIMAZOLE 1% 15 GM TUBE TP SCH ×2 (09:45→17:53)
--- NOTE | 2017-09-05 09:50 | NUR ---
RN NOTES NOVOLOG 4U NOT GIVEN, PT HAD LOW B/S OF 99MGDL. WILL CONTINUE TO MONITOR
[2017-09-05] MEDS: INSULIN REGULAR, HUMAN 100 UNIT/ML 3 ML VIAL SQ PRN (12:24)
[2017-09-05 16:00] VITALS: BP 146/70
--- NOTE | 2017-09-05 18:52 | NUR ---
RN NOTES NOVOLOG 4U NOT GIVEN, PT HAD LOW B/S OF 117MGDL. WILL CONTINUE TO MONITOR
--- NOTE | 2017-09-05 19:40 | NUR ---
MS RN DISCHARGED NOTES PATIENT DISCHARGED TO [facility]. REPORT GIVEN TO RN'S MODESTO. PT A/O X3 WITH NO COMPLAINTS DURING DISCHARGE. ON ROOM AIR, TOLERATED WITH NO ACUTE RESPIRATORY DISTRESS NOTED. V/S TAKEN AND RECORDED, PHOTOS OF SKIN RASHES TAKEN AND FILED ON CHART. 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 PT LEFT UNIT VIA PositionlyNEY AT 1920 WITH 2 EMT'S. MD AND NURSE LEASE BROKER AWARE.
== END 2017-09-05 19:35 | DRG 698 ==
LOC: ER 20:39 → TELE1 22:44 → MEDSG1 09-03 10:19 → MEDSG2 09-05 04:37
PROVIDERS: ADMIT Internal Medicine; ATTEND Internal Medicine
DX: N31.9 Neuromuscular dysfunction of bladder, unspecified (principal); N17.0 Acute kidney failure with tubular necrosis; I50.33 Acute on chronic diastolic (congestive) heart failure; G93.40 Encephalopathy, unspecified; R53.2 Functional quadriplegia; D68.59 Other primary thrombophilia; E11.42 Type 2 diabetes mellitus with diabetic polyneuropathy; F02.81 Dementia in other diseases classified elsewhere, unspecified severity, with behavioral disturbance; E87.6 Hypokalemia; G20 Parkinson's disease; D64.9 Anemia, unspecified; R33.9 Retention of urine, unspecified; E78.5 Hyperlipidemia, unspecified; I25.10 Atherosclerotic heart disease of native coronary artery without angina pectoris; M19.90 Unspecified osteoarthritis, unspecified site; F29 Unspecified psychosis not due to a substance or known physiological condition; F32.9 Major depressive disorder, single episode, unspecified; G89.29 Other chronic pain; I11.0 Hypertensive heart disease with heart failure; I34.0 Nonrheumatic mitral (valve) insufficiency; I70.0 Atherosclerosis of aorta; K57.30 Diverticulosis of large intestine without perforation or abscess without bleeding; K21.9 Gastro-esophageal reflux disease without esophagitis; K59.00 Constipation, unspecified; M81.0 Age-related osteoporosis without current pathological fracture; Z91.81 History of falling; Z90.710 Acquired absence of both cervix and uterus; Z87.440 Personal history of urinary (tract) infections; Z86.010 Personal history of colon polyps; Z81.8 Family history of other mental and behavioral disorders; Z79.899 Other long term (current) drug therapy; Z79.84 Long term (current) use of oral hypoglycemic drugs; Z79.4 Long term (current) use of insulin; T50.905A Adverse effect of unspecified drugs, medicaments and biological substances, initial encounter; Y92.129 Unspecified place in nursing home as the place of occurrence of the external cause; L30.4 Erythema intertrigo; L98.9 Disorder of the skin and subcutaneous tissue, unspecified; N39.498 Other specified urinary incontinence; N32.81 Overactive bladder; R07.89 Other chest pain; M25.562 Pain in left knee; M25.561 Pain in right knee
CPT/HCPCS: 36415; 71045-TC; 73564-TC; 80048-TC; 80053-TC; 80061-TC; 80076-TC; 81000-TC; 82962-TC; 83690-TC; 83735-TC; 83880; 84100-TC; 84443-TC; 84484-TC; 85025-TC; 87081-TC; 93308-TC; 97110-TC; 97530-TC; A4606; J1815; J3475; J3480; J3490; Z7610

== ENCOUNTER 2018-08-11 20:48 | Emergency (ER) | payer MEDICARE, OTHER ==
[~2018-08-11] VITALS: Ht 165.1 cm; Wt 97.5 kg
[~2018-08-11 20:48] MED LIST changes: -INSU100V7 SQ; +METF-440 PO; -METF500T4 PO
[2018-08-11] MEDS ORDERED: FEE EMEERGENCY 1 MIN EA MC ONE (20:50)
[2018-08-11] MEDS ORDERED: SUCCINYLCHOLINE CHLORIDE 20 MG/ML VIAL IV ONE (20:50)
[2018-08-11] MEDS ORDERED: ETOMIDATE 2 MG/ML VIAL IV ONE (20:50)
--- NOTE | 2018-08-11 21:05 | NUR ---
[id number] FROM [facility] C/C GLF OFF OF BED, BUMPT TO THE BACK OF HEAD. PER EMS, PT IS NOT ON BLOOD THINNERS. -N/V/D. PER STAFF, NORMAL MENTATION. BS 206. PT EYES CLOSED, UNRESPONSIVE. RR EVEN & UNLABORED. PT SEEN & EVAL'D BY DR. SILVA. PT WILL CONT TO MONITOR.
--- NOTE | 2018-08-11 21:48 | NUR ---
PT TO CT VIA [facility].
[2018-08-11] MEDS ORDERED: PROPOFOL 100 ML ONE (22:27)
--- NOTE | 2018-08-11 22:35 | NUR ---
PT INTUBATED BY DR. CORLEY 2230 GIVEN 20 MG OF ETOMIDATE IVP, FLUSHED WITH 10CC OF NS IVP GIVEN 150 MG OF SUCCINYLCHOLINE IVP, FLUSHED WITH 10CC OF NS IVP PER ERMD ORDER.
[2018-08-11 22:38] LABS: BASOPHILS % (AUTO) 0.2 % (0.0-2.0); EOSINOPHILS % (AUTO) 0.1 % (0.0-6.0); HEMATOCRIT 35 % (33-45); HEMOGLOBIN 11.6 g/dL (11.5-14.8); LYMPHOCYTES # (AUTO) 3.3 /CMM (0.8-4.8); LYMPHOCYTES % (AUTO) 21.9 % (20.0-44.0); MEAN CORPUSCULAR HGB CONC 33 g/dl (31.0-36.0); MEAN CORPUSCULAR VOLUME 94 fL (82-100); MONOCYTES # (AUTO) 0.5 /CMM (0.1-1.30); MONOCYTES % (AUTO) 3.1 % (2.0-12.0); NEUTROPHILS # (AUTO) 11.3 /CMM (1.8-8.9); NEUTROPHILS % (AUTO) 74.7 % (43.0-81.0); PLATELET COUNT (AUTO) 228 /CMM (150-450); RED BLOOD CELL COUNT(AUTO) 3.73 MIL/uL (4.0-5.2); WHITE BLOOD COUNT (AUTO) 15.1 K/uL (4.3-11.0)
--- NOTE | 2018-08-11 22:45 | NUR ---
STARTED ON DIPROVAN DRIP @ 20 MCG/KG/MIN. PT STABLE, NAD NOTED @ THIS TIME.
[2018-08-11 22:50] LABS: CARBON DIOXIDE 28 mmol/L (21-32); CHLORIDE 102 mmol/L (98-107); CREATININE 1.1 mg/dL (0.6-1.3); GLUCOSE 212 mg/dL (74-106); POTASSIUM 3.8 mmol/L (3.5-5.1); SODIUM SERUM 140 mmol/L (136-145); UREA NITROGEN, BLOOD 24 mg/dL (7-18)
--- NOTE | 2018-08-11 22:50 | NUR ---
PT INTUBATED BY DR CORLEY WITH 7.0 ETT POSITIONED AT 21CM. POSITIVE COLOR CHANGE ON THE CO2 DETECTOR, MIST IN THE TUBE, BREATH SOUNDS CONFIRMED BY DR CORLEY. PT SPO2 REMAINS AT 100% POST INTUBATION. SETTINGS AC 16 500 40% +5 PER MD VERBAL ORDER WITH ABG TO FOLLOW IN 30MIN. AMBU BAG AT BEDSIDE ALARMS SET AND AUDIBLE. DISCONNECT ALARMS CHECKED VENT PLUGGED INTO RED OUTLET. PT SEDATED. SUCTIONED A SMALL AMOUNT OF THIN WHITE SECRETIONS. Addendum: 08/11/18 at 2254 by ROSALBA AGUILERA RT Amended: Links added.
[2018-08-11 22:56] LABS: ALANINE AMINOTRANSFERASE 20 U/L (12-78); ALBUMIN 3.8 g/dL (3.4-5.0); ALKALINE PHOSPHATASE 100 U/L (46-116); ASPARTATE AMINOTRANSFERASE 28 U/L (15-37); BILIRUBIN,DIRECT 0.1 mg/dL (0.0-0.2); BILIRUBIN,TOTAL 0.5 mg/dL (0.2-1.0); TOTAL PROTEIN, SERUM 8.5 g/dL (6.4-8.2)
--- NOTE | 2018-08-11 23:03 | NUR ---
[facility] ETA [id number]
[2018-08-11 23:18] LABS: CHOLESTEROL 187 mg/dL (<200); HDL CHOLESTEROL 60 mg/dL (40-60); LDL 110 mg/dL (0-99); TRIGLYCERIDES 88 mg/dL (30-150)
--- NOTE | 2018-08-11 23:35 | NUR ---
REPORT GIVEN TO VANIA RN @ [facility] FOR CONT OF CARE.
--- NOTE | 2018-08-11 23:42 | NUR ---
PT EN ROUTE TO [facility] ICU VIA ALS. REPORT GIVEN TO MARCELLO PATEL CRITICAL TRANSFER RN.
[2018-08-12] VITALS: BP 165/89
[2018-08-12] MEDS ORDERED: ETOMIDATE 2 MG/ML VIAL IV ONE
[2018-08-12] MEDS ORDERED: SUCCINYLCHOLINE CHLORIDE 20 MG/ML VIAL IV ONE
[2018-08-12] MEDS ORDERED: PROPOFOL 100 ML IV PRN (00:30)
== END 2018-08-12 00:12 | disposition short-term general hospital (02) ==
LOC: ER 20:49
DX: S06.5X9A Traumatic subdural hemorrhage with loss of consciousness of unspecified duration, initial encounter (principal); E11.42 Type 2 diabetes mellitus with diabetic polyneuropathy; I45.81 Long QT syndrome; G20 Parkinson's disease; F02.80 Dementia in other diseases classified elsewhere, unspecified severity, without behavioral disturbance, psychotic disturbance, mood disturbance, and anxiety; M25.551 Pain in right hip; I10 Essential (primary) hypertension; E78.5 Hyperlipidemia, unspecified; G89.29 Other chronic pain; Z98.890 Other specified postprocedural states; Z88.6 Allergy status to analgesic agent; W18.39XA Other fall on same level, initial encounter; Y93.89 Activity, other specified; Y92.89 Other specified places as the place of occurrence of the external cause; Y99.8 Other external cause status
CPT/HCPCS: 31500; 36415; 70450; 71045 ×2; 73502; 80048; 80061; 80076; 84484; 85025; 85730; 93005; 99152; 99291; A4606; J0330; J3490 ×2; G0500